=== PATIENT | male | born 1990 | race Caucasian/White ===

== ENCOUNTER 2023-10-29 20:56 | Emergency (ER) | payer SELFPAY ==
[2023-10-29 22:11] LABS: Absolute Basophils 0.1 K/uL (0-0.5); Absolute Eosinophils 0.3 K/uL (0-0.5); Absolute Lymphocytes (CBC) 3.4 K/uL (0.7-4.9); Absolute Neutrophil 3.5 K/uL (1.8-8.0); Basophils % 0.8 % (0-1.3); Hemoglobin 14.8 g/dL (13.6-17.9); Lymphocytes % 40.8 % (15.3-44.8); MCH 28.7 pg (27.0-35.0); MPV 6.3 fL (7.6-11.3); Monocytes % 12.4 % (3.3-12.3); Nucleated Red Blood Cells % 0.1 % (0-0); Platelets 268 thou/uL (152-406); RBC Red Blood Cell Count 5.17 M/uL (4.33-5.43); Red Cell Distribution Width 14.1 % (12.1-15.2)
--- NOTE | 2023-10-29 22:28 | RAD REPORT ---
EXAM DESCRIPTION: RAD - Chest Single View - 10/29/2023 10:19 pm CLINICAL HISTORY: CHEST PAIN Chest pain. COMPARISON: <Comparisons> FINDINGS: Portable technique limits examination quality. The lungs are grossly clear. The heart is normal in size. No displaced fractures.Mild upper thoracic levoscoliosis. IMPRESSION: No acute intrathoracic process suspected.
[2023-10-30] MEDS ORDERED: ALBUTEROL 2.5 MG/3 ML NEB SOL ONE (00:11)
[2023-10-30] MEDS ORDERED: METHYLPREDNISOLONE 125 MG INJ ONE (00:11)
[2023-10-30] MEDS ORDERED: IPRATROPIUM BROM 0.5MG/2.5ML ONE (00:11)
[2023-10-30 00:15] LABS: ALT/SGPT 27 U/L (16-61); AST/SGOT 14 U/L (15-37); Albumin 3.6 g/dL (3.4-5.0); Albumin/Globulin Ratio 1.2 (1.1-1.8); Alkaline Phosphatase 77 U/L (45-117); Anion Gap 5.3 mEq/L (5.0-15.0); BUN Blood Urea Nitrogen 13 mg/dL (7-18); Bicarbonate 28 mEq/L (21-32); Bilirubin Direct < 0.2 mg/dL (0-0.2); Bilirubin Indirect, Calculated 0.1 mg/dL (0.2-0.8); Bilirubin Total 0.3 mg/dL (0.2-1.0); Globulin 3.1 g/dL (2.3-3.5); Glomerular Filtration Rate 72 ml/min (=/>90); Glucose Level 96 mg/dL (74-106); Magnesium 2.3 mg/dL (1.6-2.4); NT PRO-BNP 108 pg/mL (<125); Potassium 4.3 mEq/L (3.5-5.1); Protein, Total 6.7 g/dL (6.4-8.2); Sodium Level 138 mEq/L (136-145); Troponin High Sensitivity < 3.0 pg/mL (<58.9)
[2023-10-30 01:12] LABS: SARS-CoV-2 Antigen CONTROL BLUE LINE VIS/BG OK; SARS-CoV-2 Antigen Rapid Res Negative (Negative)
--- NOTE | 2023-10-30 01:16 | ER ---
Nurse's Notes [facility] Name: Anthony Carty Age: 33 yrs Sex: Male : 1990 Arrival Date: 10/29/2023 Time: 20:56 Bed 20 Private MD: Diagnosis: Cough;Wheezing;Chest pain, unspecified Presentation: 10/28 21:22 Chief complaint: Patient states: I was recently diagnosed with an upper respiratory jb4 infection. It has progressed to drainage in my throat, coughing up phlegm. I started having chest pain 1 day ago that feels like an elephant sitting on my chest. Coronavirus screen: At this time, the client does not indicate any symptoms associated with coronavirus-19. Ebola Screen: No symptoms or risks identified at this time. Initial Sepsis Screen: Does the patient meet any 2 criteria? No. Patient's initial sepsis screen is negative. Does the patient have a suspected source of infection? No. Patient's initial sepsis screen is negative. Risk Assessment: Do you want to hurt yourself or someone else? Patient reports no desire to harm self or others. Onset of symptoms was October 28, 2023. Transition of care: patient was not received from another setting of care. 21:22 Method Of Arrival: Ambulatory jb4 21:22 Acuity: JUSTEN 2 jb4 Historical: - Allergies: 21:26 No Known Allergies; jb4 - PMHx: 21:26 None; jb4 - PSHx: 21:26 Anal fistula repair.; jb4 - Immunization history:: Adult Immunizations up to date. - Infectious Disease History:: Denies. - Social history:: Smoking status: Reported history of juuling and/or vaping. Patient uses alcohol, but reports only rare drinking. Screenin:55 [facility] ED Fall Risk Assessment (Adult) History of falling in the last 3 months, cp4 including since admission No falls in past 3 months (0 pts) Confusion or Disorientation No (0 pts) Intoxicated or Sedated No (0 pts) Impaired Gait No (0 pts) Mobility Assist Device Used No (0 pt) Altered Elimination No (0 pt) Score/Fall Risk Level 0 - 2 = Low Risk Oriented to surroundings, Maintained a safe environment, Assessed \T\ reinforced patient's understanding of fall precautions, Hourly rounding (assess needs \T\ fall precautionary measures) done. Abuse screen: Denies threats or abuse. Nutritional screening: No deficits noted. Tuberculosis screening: No symptoms or risk factors identified. Assessment: 21:55 General: Appears uncomfortable, Behavior is calm, cooperative, appropriate for age. cp4 Pain: Pain does not radiate. Pain began 1 day ago. Cardiovascular: Reports chest pain, fatigue, shortness of breath, Rhythm is sinus rhythm. Vital Signs: 21:22 BP 130 / 76; Pulse 90; Resp 18; Temp 99.1; Pulse Ox 96% on R/A; Weight 113.4 kg (R); jb4 Height 6 ft. 4 in. ; Pain 0/10; 22:00 BP 115 / 76; Pulse 81; Resp 18; Pulse Ox 99% ; cp4 23:00 BP 120 / 76; Pulse 80; Resp 18; Pulse Ox 96% ; cp4 10/29 00:00 BP 135 / 89; Pulse 72; Resp 18; Pulse Ox 96% ; cp4 01:31 BP 138 / 89; Pulse 76; Resp 18; Temp 99; Pulse Ox 99% ; cp4 10/28 21:22 Body Mass Index 30.43 (113.40 kg, 193.04 cm) jb4 10/28 21:22 Pain Scale: Adult 4 ED Course: 10/28 20:59 Patient arrived in ED. mr 21:12 Ortiz Benavides PA is PHCP. cp 21:12 Nando Nicole MD is Attending Physician. cp 21:26 Triage completed. jb4 21:26 Arm band placed on right wrist. jb4 21:39 Mahi Alvarez is Primary Nurse. cp4 21:53 Troponin HS Sent. cp4 21:53 NT PRO-BNP Sent. cp4 21:54 Magnesium Sent. cp4 21:54 LFT's Sent. cp4 21:54 D-Dimer Sent. cp4 21:54 CBC with Diff Sent. cp4 21:55 Bed in low position. Call light in reach. Side rails up X 1. Provided Education on: cp4 chest pain. Client placed on continuous cardiac and pulse oximetry monitoring. NIBP monitoring applied. threat monitoring analyst on. Pulse ox on. 21:55 Basic Metabolic Panel Sent. cp4 21:55 No provider procedures requiring assistance completed. Inserted saline lock: 20 gauge cp4 in right antecubital area, using aseptic technique. Blood collected. O2 via room air. 22:21 XRAY Chest (1 view) In Process Unspecified. EDMS 10/29 00:20 Influenza Screen (a \T\ B) Sent. cp4 00:20 SARS RAPID Sent. cp4 01:32 intact, bleeding controlled, No redness/swelling at site. Pressure dressing applied. cp4 Administered Medications: 00:20 Drug: DuoNeb Nebulize (2.5 mg - 0.5 mg) 3 ml Nebulizer once Route: Nebulizer; cp4 01:33 Follow up: Response: No adverse reaction cp4 00:20 Drug: MethylPrednisoLONE IVP 125 mg IVP once Route: IVP; Site: right antecubital; cp4 01:33 Follow up: Response: No adverse reaction cp4 Medication: 10/28 21:55 VIS not applicable for this client. cp4 Outcome: 10/29 01:16 Discharge ordered by MD. cp 01:32 Discharged to home ambulatory, cp4 01:32 Condition: stable 01:32 Discharge instructions given to patient, Instructed on discharge instructions, follow up and referral plans. medication usage, Demonstrated understanding of instructions, follow-up care, medications, Prescriptions given X 4, 01:33 Patient left the ED. cp4 Signatures: Dispatcher [employer] EDGA Emerald Leonardo, Reg Reg mr Ortiz Benavides, Anthony Alicea cp, JACINTA RN Mahi Avila cp4
--- NOTE | 2023-10-30 01:16 | EDPHYS ---
Physician Documentation [facility] Name: Anthony Carty Age: 33 yrs Sex: Male : 1990 Arrival Date: 10/29/2023 Time: 20:56 Bed 20 Private MD: ED Physician Nando Nicole HPI: 10/28 21:40 This 33 yrs old Male presents to ER via Ambulatory with complaints of Chest Pain, Sinus cp Congestion, Fever. 21:40 The patient or guardian reports cough, that is intermittent, sinus and chest congestion.cp 21:40 Onset: The symptoms/episode began/occurred last week. cp 21:40 Associated signs and symptoms: Pertinent positives: chest pain, with cough, Pertinent cp negatives: diarrhea, fever, sore throat, vomiting. Severity of symptoms: in the emergency department the symptoms are unchanged despite home interventions. Historical: - Allergies: 21:26 No Known Allergies; jb4 - PMHx: 21:26 None; jb4 - PSHx: 21:26 Anal fistula repair.; jb4 - Immunization history:: Adult Immunizations up to date. - Infectious Disease History:: Denies. - Social history:: Smoking status: Reported history of juuling and/or vaping. Patient uses alcohol, but reports only rare drinking. ROS: 21:45 Constitutional: Negative for fever, poor PO intake, cp 21:45 Eyes: Negative for injury, pain, redness, and discharge, cp 21:45 ENT: Negative for sore throat, difficulty swallowing, difficulty handling secretions, 21:45 Cardiovascular: Positive for chest pain, with cough, 21:45 Respiratory: Positive for cough, "sounds productive", shortness of breath, 21:45 Abdomen/GI: Negative for abdominal pain, vomiting, diarrhea, constipation, 21:45 Skin: Negative for rash, 21:45 Neuro: Negative for altered mental status, dizziness, headache, 21:45 All other systems are negative, Exam: 21:17 ECG was reviewed by the Attending Physician. cp 21:50 Constitutional: The patient appears in no acute distress, alert, awake, cp non-diaphoretic, non-toxic, well developed, well nourished, 21:50 Head/Face: Normocephalic, atraumatic. cp 21:50 Eyes: Periorbital structures: appear normal, Conjunctiva: normal, no exudate, no injection, Sclera: no appreciated abnormality, Lids and lashes: appear normal, bilaterally, 21:50 ENT: External ear(s): are unremarkable, Ear canal(s): are normal, clear, TM's: dullness, bilaterally, Nose: is normal, Mouth: Lips: moist, Oral mucosa: pink and intact, moist, Posterior pharynx: Airway: no evidence of obstruction, patent, Tonsils: no enlargement, no exudate, erythema, is not appreciated, exudate, is not appreciated, 21:50 Neck: ROM/movement: is normal, is supple, without pain, no range of motions limitations, no meningismus, 21:50 Chest/axilla: Inspection: normal, 21:50 Cardiovascular: Rate: normal, Rhythm: regular, Edema: is not appreciated, JVD: is not appreciated, 21:50 Respiratory: the patient does not display signs of respiratory distress, Respirations: labored breathing, is not present, intercostal retractions, are absent, Breath sounds: bronchial sounds, that are mild, are heard diffusely, stridor, is not appreciated, wheezing: that is mild, is heard diffusely, 21:50 Abdomen/GI: Inspection: abdomen appears normal, 21:50 Neuro: Orientation: to person, place \\T\\ time. Mentation: is normal, Vital Signs: 21:22 BP 130 / 76; Pulse 90; Resp 18; Temp 99.1; Pulse Ox 96% on R/A; Weight 113.4 kg (R); jb4 Height 6 ft. 4 in. ; Pain 0/10; 22:00 BP 115 / 76; Pulse 81; Resp 18; Pulse Ox 99% ; cp4 23:00 BP 120 / 76; Pulse 80; Resp 18; Pulse Ox 96% ; 4 10/29 00:00 BP 135 / 89; Pulse 72; Resp 18; Pulse Ox 96% ; cp4 01:31 BP 138 / 89; Pulse 76; Resp 18; Temp 99; Pulse Ox 99% ; cp4 10/28 21:22 Body Mass Index 30.43 (113.40 kg, 193.04 cm) [facility] 10/28 21:22 Pain Scale: Adult [facility] MDM: 10/28 21:12 Patient medically screened. 10/29 01:15 Data reviewed: vital signs, nurses notes, lab test result(s), EKG, radiologic studies, cp plain films. 01:15 Differential diagnosis: bronchitis, flu, COVID-19, pneumonia. Antibiotic cp administration: The patient is discharged and will get outpatient antibiotics, Zithromax. I considered the following discharge prescriptions or medication management in the emergency department Medications were administered in the Emergency Department. See MAR. Counseling: I had a detailed discussion with the patient and/or guardian regarding the historical points, exam findings, and any diagnostic results supporting the discharge/admit diagnosis, lab results, radiology results, to return to the emergency department if symptoms worsen or persist or if there are any questions or concerns that arise at home. Response to treatment: the patient's symptoms have markedly improved after treatment, and as a result, I will discharge patient. 10/28 21:39 Order name: Basic Metabolic Panel; Complete Time: 00:36 cp 10/29 00:36 Interpretation: Normal except: CL 109; CRE 1.33; GFR 72. cp 10/28 21:39 Order name: CBC with Diff; Complete Time: 23:26 cp 10/29 00:36 Interpretation: Normal except: MN% 12.4; MPV 6.3. cp 10/28 21:39 Order name: D-Dimer; Complete Time: 23:26 cp 10/28 21:39 Order name: LFT's; Complete Time: 00:36 cp 10/28 21:39 Order name: Magnesium; Complete Time: 00:36 cp 10/28 21:39 Order name: NT PRO-BNP; Complete Time: 00:36 cp 10/28 21:39 Order name: Troponin HS; Complete Time: 00:36 cp 10/28 23:36 Order name: SARS RAPID cp 10/28 23:36 Order name: Influenza Screen (a \\T\\ B) cp 10/28 21:39 Order name: XRAY Chest (1 view); Complete Time: 23:26 cp 10/28 21:39 Order name: EKG; Complete Time: 21:39 cp 10/28 21:39 Order name: Cardiac monitoring; Complete Time: 21:40 cp 10/28 21:39 Order name: EKG - Nurse/Tech; Complete Time: 21:39 cp 10/28 21:39 Order name: IV Saline Lock; Complete Time: 21:53 cp 10/28 21:39 Order name: Labs collected and sent; Complete Time: 21:53 cp 10/28 21:39 Order name: O2 Per Protocol; Complete Time: 21:53 cp 10/28 21:39 Order name: O2 Sat Monitoring; Complete Time: 21:53 cp EC/03 21:17 Rate is 95 beats/min. Rhythm is regular. DE interval is normal. QRS interval is normal. cp QT interval is normal. T waves are Inverted in lead III. Interpreted by me. Reviewed by me. Administered Medications: 10/29 00:20 Drug: DuoNeb Nebulize (2.5 mg - 0.5 mg) 3 ml Nebulizer once Route: Nebulizer; cp4 01:33 Follow up: Response: No adverse reaction cp4 00:20 Drug: MethylPrednisoLONE IVP 125 mg IVP once Route: IVP; Site: right antecubital; cp4 01:33 Follow up: Response: No adverse reaction cp4 Disposition: 01:57 Co-signature as Attending Physician, Nando Nicole MD I reviewed the patient's care rt provided by the Advanced Practice Provider and agree with the diagnosis and treatment plan. Disposition Summary: 10/30/23 01:16 Discharge Ordered Notes: Location: Home cp Problem: new cp Symptoms: have improved cp Condition: Stable cp Diagnosis - Cough cp - Wheezing cp - Chest pain, unspecified cp Followup: cp - With: Private Physician - When: 2 - 3 days - Reason: Worsening of condition Discharge Instructions: - Discharge Summary Sheet cp - Nonspecific Chest Pain, Adult cp - Cool Mist Vaporizer cp - Cough, Adult cp Forms: - Medication Reconciliation Form cp - Antibiotic Education cp - Prescription Opioid Use cp - Patient Portal Instructions cp - Leadership Thank You Letter cp Prescriptions: - Bromfed DM 2-30-10 mg/5 mL Oral syrup - administer 10 milliliter ORAL route every 6 hours As needed as needed for cold cp symptoms; 240 milliliter; Refills: 0, Product Selection Permitted - albuterol sulfate 90 mcg/actuation Inhalation HFA Aerosol Inhaler - inhale 1 inhalation INHALATION route every 4 to 6 hours as needed for cough, cp shortness of breath; 1 unit; Refills: 0, Product Selection Permitted - Zithromax Z-Dontae 250 mg Oral Tablet - take 1 tablet ORAL route as directed for 5 days Day 1 - take two (2) tablets cp one time. Day 2, 3, 4 , 5 take one (1) tablet once daily.; 6 tablet; Refills: 0, Product Selection Permitted - Medrol (Dontae) 4 mg Oral Tablets, Dose Pack - take 1 tablet ORAL route as directed - follow package instructions; 1 packet; cp Refills: 0, Product Selection Permitted Signatures: Dispatcher [employer] Ortiz Ramirez PA PA cp Bryson, James, RN RN jb4 Nando Nicole MD MD rt Potter, Christina cp4
[2023-10-30 01:57] VITALS: BP 138/89; TEMP 99; O2SAT 99
--- NOTE | 2023-10-31 11:14 | EKG ---
Test Date: 2023-10-29 Test Time: 21:12:26 Certified Professional Coder: RV MEASUREMENT RESULTS: Intervals: Rate: 95 NE: 146 QRSD: 96 QT: 320 QTc: 402 [place]: P: 65 NE: 146 QRS: 68 T: -8 INTERPRETIVE STATEMENTS: Normal sinus rhythm T wave abnormality, consider inferolateral ischemia Abnormal ECG No previous ECG available for comparison Electronically Signed On 10-31-23 11:12:08 CDT by Toby Self
== END 2023-10-30 01:33 | disposition home or self-care (01) ==
LOC: ER 20:56
DX: R05.9 Cough, unspecified (principal); R07.9 Chest pain, unspecified; R06.2 Wheezing; Z11.52 Encounter for screening for COVID-19
CPT/HCPCS: 36415; 71045; 80048; 80076; 83735; 83880; 84484; 85025; 85379; 87804; 87811; 93005; 94640; 96374; 99285; J2919; J7613; J7644